=== PATIENT | female | born 1950 | race Caucasian/White ===

== ENCOUNTER → 2018-03-25 10:37 | Outpatient (CLI) | payer OTHER, SELFPAY ==
--- NOTE | 2018-03-25 | DI.MG.S_ITS ---
BILATERAL DIGITAL SCREENING MAMMOGRAM 3D/2D WITH CAD: 03/25/2018 CLINICAL: Routine screening. Comparison is made to exams dated: 11/09/2014 mammogram, 10/16/2011 mammogram, and 08/18/2009 mammogram - [facility]. The tissue of both breasts is heterogeneously dense. This may lower the sensitivity of mammography. Current study was also evaluated with a Computer Aided Detection (CAD) system. No significant masses, calcifications, or other findings are seen in either breast. There has been no significant interval change. IMPRESSION: NEGATIVE There is no mammographic evidence of malignancy. A 1 year screening mammogram is recommended. This exam was interpreted at Station ID: [id number]. NOTE: For mammograms, a report in lay terms will be sent to the patient. Approximately 15% of breast malignancies will not be visualized mammographically. In the management of a palpable breast mass, a negative mammogram must not discourage biopsy of a clinically suspicious lesion. Electronically Signed By: Scooby duran/celestino:03/25/2018 16:28:37 letter sent: Normal Exam ACR BI-RADS Category 1: Negative 3341F
== END ==
PROVIDERS: PCP Nurse Practitioner Family; Visit Provider Nurse Practitioner Family
DX: Z12.31 Encounter for screening mammogram for malignant neoplasm of breast (principal)
CPT/HCPCS: 77063; 77067

== ENCOUNTER → 2021-01-12 10:27 | Outpatient (CLI) | payer MEDICARE, OTHER, SELFPAY ==
[2021-01-12 19:46] LABS: Add Manual Diff / Slide Review NO; Basophils Absolute Auto 100 /uL (0-100); Basophils Percent Auto 0.9 % (0-2); Eosinophils Absolute Auto 100 /uL (0-450); Eosinophils Percent Auto 1.7 % (2-4); Hematocrit 39.8 % (36-46); Hemoglobin 13.6 g/dL (12.0-16.0); Lymphocytes Absolute Auto 2600 /uL (1100-4500); Lymphocytes Percent Auto 38.7 % (25-40); Mean Corpuscular HGB Conc 34.3 % (30-36); Mean Corpuscular Hemoglobin 32.6 PG (26-34); Mean Corpuscular Volume 95.2 fL (80-100); Monocytes Absolute Auto 600 /uL (0-900); Monocytes Percent Auto 8.4 % (3-14); Neutrophils Absolute Auto 3300 /uL (1500-7000); Neutrophils Percent Auto 50.3 % (50-75); Platelet Count 253 X10^3/uL (150-400); Red Blood Cell Count 4.18 X10^6/uL (4.0-5.2); Red Cell Distribution Width 13.7 % (11.6-14.8); White Blood Cell Count 6.6 X10^3/uL (4.5-11.0)
[2021-01-12 19:51] LABS: Cholesterol 255 mg/dL (140-199); HDL Cholesterol 85 mg/dL (40-60); LDL Cholesterol Calculated 144 mg/dL (<100); Triglycerides 132 mg/dL (35-150)
== END ==
PROVIDERS: PCP Physician Assistant Medical; Visit Provider Physician Assistant Medical
DX: I10 Essential (primary) hypertension (principal)
CPT/HCPCS: 80061; 85025

== ENCOUNTER → 2021-01-13 15:25 | Outpatient (CLI) | payer MEDICARE, OTHER, SELFPAY ==
--- NOTE | 2021-01-13 15:30 | DI.MG.S_ITS ---
BILATERAL DIGITAL SCREENING MAMMOGRAM 3D/2D WITH CAD: 01/13/2021 CLINICAL: Routine screening. Comparison is made to exams dated: 03/25/2018 mammogram, 11/09/2014 mammogram, and 10/16/2011 mammogram - [facility]. The tissue of both breasts is heterogeneously dense. This may lower the sensitivity of mammography. Current study was also evaluated with a Computer Aided Detection (CAD) system. No significant masses, calcifications, or other findings are seen in either breast. There has been no significant interval change. IMPRESSION: NEGATIVE There is no mammographic evidence of malignancy. A 1 year screening mammogram is recommended. This exam was interpreted at Station ID: [id number]. NOTE: For mammograms, a report in lay terms will be sent to the patient. Approximately 15% of breast malignancies will not be visualized mammographically. In the management of a palpable breast mass, a negative mammogram must not discourage biopsy of a clinically suspicious lesion. Electronically Signed By: Scooby duran/celestino:01/13/2021 15:55:08 letter sent: Normal Exam ACR BI-RADS Category 1: Negative 3341F
== END ==
PROVIDERS: PCP Physician Assistant Medical; Referring Provider Physician Assistant Medical; Visit Provider Physician Assistant Medical
DX: Z12.31 Encounter for screening mammogram for malignant neoplasm of breast (principal)
CPT/HCPCS: 77063; 77067

== ENCOUNTER → 2022-01-20 10:08 | Outpatient (CLI) | payer MEDICARE, OTHER, SELFPAY ==
[2022-01-20 20:17] LABS: Add Manual Diff / Slide Review NO; Basophils Absolute Auto 100 /uL (0-100); Eosinophils Absolute Auto 100 /uL (0-450); Eosinophils Percent Auto 0.8 % (2-4); Hematocrit 39.3 % (36-46); Hemoglobin 13.5 g/dL (12.0-16.0); Lymphocytes Absolute Auto 3200 /uL (1100-4500); Mean Corpuscular HGB Conc 34.2 % (30-36); Mean Corpuscular Hemoglobin 31.8 PG (26-34); Monocytes Absolute Auto 800 /uL (0-900); Monocytes Percent Auto 7.9 % (3-14); Neutrophils Absolute Auto 6300 /uL (1500-7000); Neutrophils Percent Auto 60.3 % (50-75); Platelet Count 264 X10^3/uL (150-400); Red Blood Cell Count 4.23 X10^6/uL (4.0-5.2); Red Cell Distribution Width 13.7 % (11.6-14.8); White Blood Cell Count 10.5 X10^3/uL (4.5-11.0)
[2022-01-20 20:28] LABS: Alanine Aminotransferase 14 IU/L (<35); Albumin 4.3 g/dL (3.5-5.0); Albumin Globulin Ratio 1.2 (1.0-2.8); Alkaline Phosphatase 93 U/L (38-126); Aspartate Aminotransferase 29 IU/L (14-36); BUN Creatinine Ratio 17.9 (6-22); Bilirubin Total 0.7 mg/dL (0.2-1.3); Blood Urea Nitrogen 15 mg/dL (7-17); Carbon Dioxide 24 mmol/L (22-32); Chloride 104 mmol/L (98-107); Cholesterol 221 mg/dL (140-199); Estimated Glomerular Filt Rate > 60 mL/min (>60); Globulin 3.6 g/dL (1.7-4.1); Glucose 98 mg/dL (80-110); HDL Cholesterol 84 mg/dL (40-60); HEMOLYSIS 23 (0-50); LDL Cholesterol Calculated 121 mg/dL (<100); Sodium 139 mmol/L (137-145); Total Protein 7.9 g/dL (6.3-8.2); Triglycerides 80 mg/dL (35-150)
[2022-01-20 21:28] LABS: Hep C Virus Ab w/Reflex Quant NEGATIVE s/c (NEGATIVE)
== END ==
PROVIDERS: PCP Physician Assistant Medical; Visit Provider Family Medicine
DX: Z00.00 Encounter for general adult medical examination without abnormal findings (principal); K51.40 Inflammatory polyps of colon without complications; I10 Essential (primary) hypertension; E78.00 Pure hypercholesterolemia, unspecified; Z12.11 Encounter for screening for malignant neoplasm of colon; Z13.1 Encounter for screening for diabetes mellitus; Z11.59 Encounter for screening for other viral diseases
CPT/HCPCS: 80053; 80061; 85025; 86803

== ENCOUNTER → 2022-04-04 07:01 | Outpatient (CLI) | payer MEDICARE, SELFPAY ==
[2022-04-04 20:28] LABS: Alanine Aminotransferase 13 IU/L (<35); Albumin Globulin Ratio 1.3 (1.0-2.8); Alkaline Phosphatase 84 U/L (38-126); Aspartate Aminotransferase 28 IU/L (14-36); BUN Creatinine Ratio 13.1 (6-22); Bilirubin Total 0.4 mg/dL (0.2-1.3); Blood Urea Nitrogen 11 mg/dL (7-17); Calcium 9.1 mg/dL (8.4-10.2); Carbon Dioxide 24 mmol/L (22-32); Chloride 103 mmol/L (98-107); Estimated Glomerular Filt Rate > 60 mL/min (>60); Globulin 3.2 g/dL (1.7-4.1); Glucose 100 mg/dL (80-110); HEMOLYSIS < 15 (0-50); Potassium 3.4 mmol/L (3.4-5.1); Sodium 136 mmol/L (137-145); Total Protein 7.2 g/dL (6.3-8.2)
[2022-04-04 21:43] LABS: COVID19 - ORCAS (NP or Nasal) Negative (Negative)
== END ==
PROVIDERS: Family Medicine; PCP Physician Assistant Medical; Visit Provider Physician Assistant
DX: Z01.812 Encounter for preprocedural laboratory examination (principal); Z20.822 Contact with and (suspected) exposure to COVID-19; Z13.9 Encounter for screening, unspecified
CPT/HCPCS: 80053; C9803; U0003

== ENCOUNTER 2022-04-06 10:28 | Day surgery (SDC) | payer MEDICARE, OTHER, SELFPAY ==
--- NOTE | 2022-04-06 | PATH_ITS ---
[facility] Accession Number: [id number] . 01 Material submitted: . cecum - CECAL COLON POLYP . 01 Diagnosis: Cecum, Polyp, Biopsy: Colonic mucosa with no diagnostic abnormality, consistent with polypoid redundancy. Negative for dysplasia and malignancy. Additional levels were examined. JNL 04/11/2022 1305 Local . 01 Electronically signed: . Claudia Jacome MD, Pathologist NPI- [id number] . 01 Gross description: . CECAL COLON POLYP: Received in formalin is 1 fragment(s) of cobb, soft tissue measuring 0.3 x 0.2 x 0.1 cm submitted entirely in 1 cassette(s) /CPE 04/07/2022 0912 Local . 01 Pathologist provided ICD-10: K63.5 . 01 CPT . 276729 Specimen Comment: A courtesy copy of this report has been sent to [phone] Performed at: 01 [facility] [address] [place] [address] [address] [facility], [place], [place] [id number] MD Scooby Watson MD Phone: [phone]
[2022-04-06 10:45] VITALS: BP 152/92; PULSE 75; RESP 16; TEMP 35.8; O2SAT 96
[2022-04-06 10:46] VITALS: BMI 25.0
[2022-04-06] MEDS: LACTATED RINGERS 1,000 ML 100 ML IV (10:56)
--- NOTE | 2022-04-06 11:43 | P.HP_ITS ---
History of Present Illness History of Present Illness Date Patient Seen: 04/06/22 Time Patient Seen: 11:43 Chief complaint: DX COLONOSCOPY Narrative: Lila is a 71-year-old woman who had a colonoscopy in 2016 at [facility] with findings of a single polyp which turned out to be a plastic polyp. She is here colonoscopy Patient History Surgical History (Updated 01/01/18 @ 06:27 by Conversion Provider) History of hip replacement Family & Social History Social History: household members spouse Tobacco & Substance use: Smoking Status Former smoker alcohol intake current Substance Use Type marijuana Meds Home Medications and Allergies Home Medications Medication Instructions Recorded Confirmed Type diltiazem HCl 180 mg 180 mg PO Q DAY #90 caps 01/31/22 04/06/22 Rx capsule,extended release 24 hr lisinopril 20 1 tab PO Q DAY #90 tabs 01/31/22 04/06/22 Rx mg-hydrochlorothiazide 12.5 mg tablet terbinafine HCl 250 mg tablet 250 mg PO DAILY #42 tabs 04/05/22 04/06/22 Rx Allergies Allergy/AdvReac Type Severity Reaction Status Date / Time No Known Drug Allergies Allergy Verified 04/06/22 10:43 Exam Vital Signs (past 8 hours): - 04/06/22 10:45 Temperature 96.5 F L Pulse Rate 75 Respiratory Rate 16 Blood Pressure 152/92 H Pulse Oximetry 96 Oxygen Delivery Method Room Air Oxygen Delivery Method Room Air Const General: comfortable Resp Effort & Inspection: normal respiratory effort Assessment & Plan Assessment and plan (1) Screening for colon cancer: Status: Acute Plan 71-year-old woman here for colonoscopy for cancer screening. We reviewed the risks and benefits and she would like to proceed. Time Spent With Patient Critical Care time: I spent a total of [] minutes of critical care time on this patient's care today; this time is exclusive of procedural time.
[2022-04-06] MEDS: MIDAZOLAM 5 MG/5 ML VIAL 7 MG IV (12:13)
[2022-04-06] MEDS: fentaNYL 250 MCG/5 ML INJ 200 MCG IV (12:13)
--- NOTE | 2022-04-06 12:25 | PM.OP.COLON ---
Operative Date/Time/Diagnoses Date of procedure: 04/06/22 Time of procedure: 12:25 Pre-op diagnosis: History of colon polyps Post-op diagnosis: same Procedure & Clinicians Study performed: Colonoscopy Same procedure as scheduled: Yes Surgeon: Kirk Saunders Procedure Notes Procedure in detail: Surgeon: Kirk Saunders MD Procedure: The patient was brought to the endoscopy suite, placed in left lateral decubitus position. The patient was connected to monitoring devices. A time-out was performed. Sedation was administered. Once the patient was adequately sedated, a digital rectal exam was performed and was normal. The scope was then inserted and advanced to the cecum where the appendiceal orifice was identified and photographed. The scope was then slowly withdrawn over greater than 6 minutes. The mucosa was thoroughly inspected. There was a small polyp in the cecum removed with cold forceps. The polyp was about 4 mm. There was rand-diverticulosis greatest in the right colon and sigmoid colon. The scope was retroflexed in the rectum. No other abnormalities were noted. The scope was straightened and removed. The patient was awakened and brought to recovery. Versed: 7 mg Fentanyl: 200 mcg EBL: 5 mL Findings: Small polyp in the cecum and pandiverticulosis Scope withdrawal time: 7 Sedation minutes: 29 Post-procedure Recommendations: Will call with biopsy results Disposition: PACU
[2022-04-06 12:30] VITALS: BP 152/92; PULSE 75; RESP 16; TEMP 36; O2SAT 95
[2022-04-06 12:35] VITALS: BP 106/65; PULSE 53; RESP 16; O2SAT 98
[2022-04-06 12:40] VITALS: BP 104/67; PULSE 58; RESP 16; O2SAT 98
[2022-04-06 12:48] VITALS: BP 111/43; PULSE 59; RESP 16; O2SAT 98
== END 2022-04-06 12:54 | disposition home or self-care (01) ==
PROVIDERS: PCP Family Medicine; Referring Provider Surgery; Visit Provider Surgery
PROC: 0DJD8ZZ Inspection of Lower Intestinal Tract, Via Natural or Artificial Opening Endoscopic (ICD-10-PCS; CPT 45378; principal; 2022-04-06 11:30)
DX: Z12.11 Encounter for screening for malignant neoplasm of colon (principal); Z86.010 Personal history of colon polyps; K57.30 Diverticulosis of large intestine without perforation or abscess without bleeding; K63.5 Polyp of colon
CPT/HCPCS: 45380; 99152; 99153; J2250; J3010

== ENCOUNTER → 2022-05-03 11:14 | Outpatient (CLI) | payer MEDICARE, OTHER, SELFPAY ==
[2022-05-03 20:01] LABS: Aspartate Aminotransferase 25 IU/L (14-36)
== END ==
PROVIDERS: PCP Family Medicine; Visit Provider Family Medicine
DX: Z51.81 Encounter for therapeutic drug level monitoring (principal)
CPT/HCPCS: 84450

== ENCOUNTER → 2023-05-14 10:30 | Outpatient (CLI) | payer MEDICARE, OTHER, SELFPAY ==
[2023-05-14 20:10] LABS: Add Manual Diff / Slide Review NO; Basophils Absolute Auto 100 /uL (0-100); Basophils Percent Auto 0.7 % (0-2); Eosinophils Absolute Auto 100 /uL (0-450); Eosinophils Percent Auto 1.5 % (2-4); Hematocrit 38.5 % (36-46); Hemoglobin 13.2 g/dL (12.0-16.0); Lymphocytes Absolute Auto 3200 /uL (1100-4500); Lymphocytes Percent Auto 43.8 % (25-40); Mean Corpuscular HGB Conc 34.3 % (30-36); Mean Corpuscular Hemoglobin 32.2 PG (26-34); Mean Corpuscular Volume 93.7 fL (80-100); Monocytes Absolute Auto 800 /uL (0-900); Monocytes Percent Auto 11.5 % (3-14); Neutrophils Absolute Auto 3200 /uL (1500-7000); Neutrophils Percent Auto 42.5 % (50-75); Platelet Count 248 X10^3/uL (150-400); Red Blood Cell Count 4.11 X10^6/uL (4.0-5.2); Red Cell Distribution Width 14.1 % (11.6-14.8); White Blood Cell Count 7.4 X10^3/uL (4.5-11.0)
[2023-05-14 20:38] LABS: Blood Urea Nitrogen 20 mg/dL (7-17); Calcium 9.1 mg/dL (8.4-10.2); Carbon Dioxide 26 mmol/L (22-32); Chloride 106 mmol/L (98-107); Cholesterol 256 mg/dL (140-199); Estimated Glomerular Filt Rate > 60 mL/min (>60); Glucose 98 mg/dL (80-110); HDL Cholesterol 87 mg/dL (40-60); HEMOLYSIS < 15 (0-50); LDL Cholesterol Calculated 145 mg/dL (<100); Potassium 3.8 mmol/L (3.4-5.1); Sodium 141 mmol/L (137-145); Triglycerides 121 mg/dL (35-150)
== END ==
PROVIDERS: PCP Family Medicine; Visit Provider Family Medicine
DX: B35.1 Tinea unguium (principal); E78.2 Mixed hyperlipidemia; I10 Essential (primary) hypertension
CPT/HCPCS: 80048; 80061; 85025

== ENCOUNTER → 2023-05-17 12:56 | Outpatient (CLI) | payer MEDICARE, OTHER, SELFPAY ==
--- NOTE | 2023-05-17 12:58 | DI.MG.S_ITS ---
BILATERAL DIGITAL SCREENING MAMMOGRAM 3D/2D WITH CAD: 05/17/2023 CLINICAL: Routine screening. Comparison is made to exams dated: 01/13/2021 mammogram, 03/25/2018 mammogram, and 11/09/2014 mammogram - [facility]. Both breasts are heterogeneously dense, which may obscure small masses (category c / 51-75% glandular tissue). Current study was also evaluated with a Computer Aided Detection (CAD) system. No significant masses, calcifications, or other findings are seen in either breast. There has been no significant interval change. IMPRESSION: NEGATIVE There is no mammographic evidence of malignancy. A 1 year screening mammogram is recommended. Based on the Tyrer Cuzick model (a risk assessment model) the patient's lifetime risk is 5.7% and her 10 year risk is 4.3%. According to the ACR, ACS, and NCCN guidelines, an annual breast MRI exam along with mammogram is recommended if the patient's lifetime risk is 20% or greater. This exam was interpreted at Station ID: [id number]. NOTE: For mammograms, a report in lay terms will be sent to the patient. Approximately 15% of breast malignancies will not be visualized mammographically. In the management of a palpable breast mass, a negative mammogram must not discourage biopsy of a clinically suspicious lesion. Electronically Signed By: Vane lundberg/celestino:05/17/2023 21:36:25 letter sent: Normal Exam ACR BI-RADS Category 1: Negative 3341F
== END ==
PROVIDERS: PCP Family Medicine; Referring Provider Family Medicine; Visit Provider Family Medicine
DX: Z12.31 Encounter for screening mammogram for malignant neoplasm of breast (principal)
CPT/HCPCS: 77063; 77067

== ENCOUNTER → 2023-12-13 09:51 | Outpatient (CLI) | payer MEDICARE, OTHER, SELFPAY ==
[2023-12-13 18:40] LABS: Add Manual Diff / Slide Review NO; Basophils Absolute Auto 100 /uL (0-100); Basophils Percent Auto 1.2 % (0-2); Eosinophils Absolute Auto 200 /uL (0-450); Hemoglobin 13.6 g/dL (12.0-16.0); Lymphocytes Absolute Auto 3700 /uL (1100-4500); Lymphocytes Percent Auto 47.9 % (25-40); Mean Corpuscular Hemoglobin 32.6 PG (26-34); Mean Corpuscular Volume 95.9 fL (80-100); Monocytes Absolute Auto 800 /uL (0-900); Monocytes Percent Auto 9.8 % (3-14); Neutrophils Absolute Auto 3000 /uL (1500-7000); Neutrophils Percent Auto 39.1 % (50-75); Platelet Count 222 X10^3/uL (150-400); Red Blood Cell Count 4.17 X10^6/uL (4.0-5.2); Red Cell Distribution Width 13.7 % (11.6-14.8); White Blood Cell Count 7.8 X10^3/uL (4.5-11.0)
[2023-12-13 19:27] LABS: Alanine Aminotransferase 14 IU/L (<35); Albumin 4.6 g/dL (3.5-5.0); Albumin Globulin Ratio 1.5 (1.0-2.8); Alkaline Phosphatase 87 U/L (38-126); Aspartate Aminotransferase 29 IU/L (14-36); BUN Creatinine Ratio 16.5 (6-22); Bilirubin Total 0.8 mg/dL (0.2-1.3); Blood Urea Nitrogen 14 mg/dL (7-17); Calcium 9.9 mg/dL (8.4-10.2); Carbon Dioxide 26 mmol/L (22-32); Chloride 105 mmol/L (98-107); Cholesterol 255 mg/dL (140-199); Estimated Glomerular Filt Rate > 60 mL/min (>60); Globulin 3.1 g/dL (1.7-4.1); Glucose 96 mg/dL (80-110); HEMOLYSIS < 15 (0-50); Potassium 4.6 mmol/L (3.4-5.1); Sodium 139 mmol/L (137-145); Total Protein 7.7 g/dL (6.3-8.2); Triglycerides 65 mg/dL (35-150)
[2023-12-13 19:44] LABS: HDL Cholesterol 113 mg/dL (40-60); LDL Cholesterol Calculated 129 mg/dL (<100)
[2023-12-13 19:56] LABS: TSH w/ Reflex to FT4 < 0.02 uIU/mL (0.47-4.68)
[2023-12-13 23:49] LABS: Free T4, Direct Thyroxine 1.41 ng/dL (0.78-2.19)
[2023-12-17 21:55] LABS: Fecal Immunochemical Test Negative (Negative)
== END ==
PROVIDERS: PCP Family Medicine; Visit Provider Physician Assistant Medical
DX: E78.2 Mixed hyperlipidemia (principal); K57.92 Diverticulitis of intestine, part unspecified, without perforation or abscess without bleeding; I10 Essential (primary) hypertension; R19.5 Other fecal abnormalities
CPT/HCPCS: 80053; 80061; 82274; 84439; 84443; 85025

== ENCOUNTER → 2024-01-18 07:46 | Outpatient (CLI) | payer MEDICARE, OTHER, SELFPAY ==
--- NOTE | 2024-01-18 07:48 | DI.US.S_ITS ---
PROCEDURE: US THYROID INDICATIONS: hyperthyroid TECHNIQUE: Real-time scanning was performed of the thyroid gland, with image documentation. COMPARISON: None. FINDINGS: Thyroid: Right lobe measures 5.0 x 2.5 x 1.9 cm. Left lobe measures 4.5 x 1.7 x 1.3 cm. Isthmus is 0.2 cm thick. Echotexture is homogeneous. Nodule number: 1 Location: Mid/inferior right thyroid lobe Size: 3.3 x 2.2 x 2.0 cm. Composition: Solid Echogenicity: Hypoechoic Shape: wider than tall. Margins: Smooth Echogenic foci: Macrocalcifications and small punctate calcifications Total points: 6 ACR TI-RADS category: TI-RADS 4 (moderately suspicious) IMPRESSION: A 3.3 cm mid/inferior right thyroid lobe TI-RADS 4 (moderately suspicious) nodule meets consensus criteria for fine-needle aspiration if not already accomplished. ACR TI-RADS definitions and recommendations: TI-RADS 1 (benign): 0 points. FNA not needed. TI-RADS 2 (not suspicious): 2 points. FNA not needed. TI-RADS 3 (mildly suspicious): 3 points. * FNA if 2.5 cm or larger, follow up if 1.5 cm or larger (at 1, 3, and 5 years). TI-RADS 4 (moderately suspicious): 4-6 points. * FNA if 1.5 cm or larger, follow up if 1 cm or larger (at 1, 2, 3, and 5 years). TI-RADS 5 (highly suspicious): 7 points or more. * FNA if 1 cm or larger, follow up if 0.5 cm or larger (every year for 5 years). Dictated by: Ryne Alexander M.D. on 01/18/2024 at 10:49 Approved by: Ryne Alexander M.D. on 01/18/2024 at 10:53
[2024-01-18 15:17] LABS: Free T3, Triiodothyronine Free 5.47 pg/mL (2.77-5.27)
[2024-01-18 15:31] LABS: TSH w/ Reflex to FT4 0.09 uIU/mL (0.47-4.68)
[2024-01-18 16:05] LABS: Free T4, Direct Thyroxine 1.14 ng/dL (0.78-2.19)
== END ==
LOC: US 07:48
PROVIDERS: PCP Physician Assistant Medical; Referring Provider Physician Assistant Medical; Visit Provider Physician Assistant Medical
DX: E05.90 Thyrotoxicosis, unspecified without thyrotoxic crisis or storm (principal); E04.1 Nontoxic single thyroid nodule; R94.6 Abnormal results of thyroid function studies
CPT/HCPCS: 36415; 76536; 84439; 84443; 84481

== ENCOUNTER → 2024-01-30 07:55 | Outpatient (CLI) | payer MEDICARE, OTHER, SELFPAY ==
--- NOTE | 2024-01-30 | PATH_ITS ---
Note [facility] Accession Number: [id number] TESTS RESULT FLAG UNITS REF RANGE LAB Clinician Provided Cytology Information No. of containers..02 Previously Prepared Cytology Slide 35 Unknown Storage/container code(s) Source: RIGHT THYROID NODULE DIAGNOSIS: RIGHT THYROID NODULE ATYPIA OF UNDETERMINED SIGNIFICANCE. [place] CATEGORY III. ATYPIA OF UNDETERMINED SIGNIFIANCE - NUCLEAR ATYPIA. MOLECULAR STUDIES REQUESTED (INTEGRATED ONCOLOGY); RESULTS WILL BE REPORTED SEPARATELY. Pathologist ICD10: R89.6 Signed out by: Veronica Peña MD, Pathologist NPI- [id number] Performed by: Trace Mtz, Litigation Assistant ([facility]) Gross description: 30 CC, RED, CLOUDY RECIEVED: IN CYTOLYT WITH 6 ALCOHOL FIXED AND 6 QUICK STAINED SLIDES ALSO 1 RNA VIAL WILL ON 08-21-2025.VO /VDU 01/31/2024 0528 [facility] FLAG LEGEND: L-Low Normal,H-High Normal,LL-Alert Low,HH-Alert High <-Panic Low,>-Panic High,A-Abnormal,AA-Critical Abnormal Performed at: 01 =[address] [facility], [place] [address] Scooby Watson MD, Performed at: [address], [place], [place] [id number] MD Scooby Watson MD Phone: [phone]
--- NOTE | 2024-01-30 07:57 | DI.US.S_ITS ---
PROCEDURE: US FINE NEEDLE ASPIRATION INDICATIONS: Nontoxic single thyroid nodule TECHNIQUE: The indications, alternatives, benefits, risks, and complications of the procedure were explained to the patient. Written informed consent was obtained and placed in the chart. The area of interest was examined sonographically and a site was chosen for ultrasound guided percutaneous sampling. The skin was prepared and draped in the usual fashion, and anesthetized with 1% lidocaine infiltrated from the skin down to the lesion. Multiple passes were then performed, with contents emptied into an appropriate pathology specimen container. A bandage was applied to the area of access at completion of the study. COMPARISON: [facility], THYROID, 01/18/2024, 7:59. FINDINGS: Location(s) of lesion(s) sampled: Right mid/inferior thyroid nodule measuring 3.2 cm. (Previously labeled #1). [place]: 25 gauge hypodermic needles x4. 22 gauge hypodermic needles x2. Number of passes: 6 total Medications: 1% lidocaine for local anaesthesia. Complications: None. IMPRESSION: Successful ultrasound-guided right mid/inferior thyroid nodule fine needle aspiration, with cytology results pending. Dictated by: nAthony Clarke M.D. on 01/30/2024 at 10:35 Approved by: Anthony Clarke M.D. on 01/30/2024 at 10:37
[2024-01-30 09:39] LABS: Free T3, Triiodothyronine Free 3.54 pg/mL (2.77-5.27)
[2024-01-30 09:53] LABS: TSH w/ Reflex to FT4 0.07 uIU/mL (0.47-4.68)
[2024-01-30 10:23] LABS: Free T4, Direct Thyroxine 1.02 ng/dL (0.78-2.19)
[2024-01-31 17:09] LABS: Anti Thyroglobulin Antibody <1.0 IU/mL (0.0-0.9); Thyroid Peroxidase Antibodies 25 IU/mL (0-34)
== END ==
LOC: US 07:56
PROVIDERS: PCP Physician Assistant Medical; Referring Provider Physician Assistant Medical; Visit Provider Physician Assistant Medical
DX: E04.1 Nontoxic single thyroid nodule; E05.90 Thyrotoxicosis, unspecified without thyrotoxic crisis or storm
CPT/HCPCS: 10005; 36415; 84439; 84443; 84481; 86376; 86800

== ENCOUNTER → 2024-02-19 11:16 | Outpatient (CLI) | payer MEDICARE, OTHER, SELFPAY ==
[2024-02-19 21:30] LABS: TSH w/ Reflex to FT4 0.03 uIU/mL (0.47-4.68)
[2024-02-19 21:57] LABS: Free T4, Direct Thyroxine 1.08 ng/dL (0.78-2.19)
== END ==
PROVIDERS: PCP Physician Assistant Medical; Visit Provider Physician Assistant Medical
DX: E04.1 Nontoxic single thyroid nodule (principal)
CPT/HCPCS: 84439; 84443

== ENCOUNTER → 2024-12-16 13:26 | Outpatient (CLI) | payer MEDICARE, OTHER, SELFPAY ==
[2024-12-16 18:53] LABS: Add Manual Diff / Slide Review NO; Basophils Absolute Auto 100 /uL (0-100); Basophils Percent Auto 0.8 % (0-2); Eosinophils Absolute Auto 100 /uL (0-450); Eosinophils Percent Auto 1.3 % (2-4); Hematocrit 41.3 % (36-46); Hemoglobin 14.1 g/dL (12.0-16.0); Lymphocytes Absolute Auto 3300 /uL (1100-4500); Lymphocytes Percent Auto 39.9 % (25-40); Mean Corpuscular HGB Conc 34.2 % (30-36); Mean Corpuscular Hemoglobin 32.8 PG (26-34); Monocytes Absolute Auto 700 /uL (0-900); Monocytes Percent Auto 8.3 % (3-14); Neutrophils Absolute Auto 4100 /uL (1500-7000); Neutrophils Percent Auto 49.7 % (50-75); Platelet Count 224 X10^3/uL (150-400); Red Cell Distribution Width 13.6 % (11.6-14.8); White Blood Cell Count 8.2 X10^3/uL (4.5-11.0)
[2024-12-16 19:04] LABS: Erythrocyte Sedimentation Rate 29 MM/HR (0-20)
[2024-12-16 19:14] LABS: Alanine Aminotransferase 20 IU/L (<35); Albumin 4.9 g/dL (3.5-5.0); Albumin Globulin Ratio 1.4 (1.0-2.8); Alkaline Phosphatase 119 U/L (38-126); Aspartate Aminotransferase 37 IU/L (14-36); BUN Creatinine Ratio 19.5 (6-22); Bilirubin Total 0.6 mg/dL (0.2-1.3); Blood Urea Nitrogen 17 mg/dL (7-17); C-Reactive Protein Quant < 0.5 mg/dL (<1.0); Calcium 9.9 mg/dL (8.4-10.2); Carbon Dioxide 21 mmol/L (22-32); Chloride 102 mmol/L (98-107); Estimated Glomerular Filt Rate > 60 mL/min (>60); Globulin 3.6 g/dL (1.7-4.1); Glucose 88 mg/dL (80-110); HEMOLYSIS < 15 (0-50); Potassium 3.6 mmol/L (3.4-5.1); Sodium 137 mmol/L (137-145); Total Protein 8.5 g/dL (6.3-8.2)
[2024-12-16 19:20] LABS: Free T3, Triiodothyronine Free 4.15 pg/mL (2.77-5.27); Free T4, Direct Thyroxine 1.49 ng/dL (0.78-2.19)
== END ==
PROVIDERS: PCP Physician Assistant Medical; Visit Provider Physician Assistant Medical
DX: E05.90 Thyrotoxicosis, unspecified without thyrotoxic crisis or storm (principal); E04.1 Nontoxic single thyroid nodule; I10 Essential (primary) hypertension
CPT/HCPCS: 80053; 84439; 84481; 85025; 85651; 86140

== ENCOUNTER → 2025-02-09 09:24 | Outpatient (CLI) | payer MEDICARE, OTHER, SELFPAY ==
[2025-02-09 19:15] LABS: Erythrocyte Sedimentation Rate 34 MM/HR (0-20)
[2025-02-09 19:22] LABS: C-Reactive Protein Quant < 0.5 mg/dL (<1.0); Cholesterol 173 mg/dL (140-199); HDL Cholesterol 77 mg/dL (40-60); LDL Cholesterol Calculated 78 mg/dL (<100); Triglycerides 89 mg/dL (35-150)
[2025-02-09 19:48] LABS: TSH w/ Reflex to FT4 0.62 uIU/mL (0.47-4.68)
== END ==
PROVIDERS: PCP Physician Assistant Medical; Visit Provider Physician Assistant Medical
DX: E78.2 Mixed hyperlipidemia (principal); E05.90 Thyrotoxicosis, unspecified without thyrotoxic crisis or storm; E04.1 Nontoxic single thyroid nodule; I10 Essential (primary) hypertension; Z86.0100 Personal history of colon polyps, unspecified
CPT/HCPCS: 80061; 84443; 85651; 86140

== ENCOUNTER → 2025-03-09 11:01 | Outpatient (CLI) | payer MEDICARE, OTHER, SELFPAY ==
--- NOTE | 2025-03-09 11:03 | DI.US.S_ITS ---
PROCEDURE: US THYROID INDICATIONS: FOLLOW-UP NODULE TECHNIQUE: Real-time scanning was performed of the thyroid gland, with image documentation. COMPARISON: [facility], US, US THYROID, 01/18/2024, 7:59. FINDINGS: Thyroid: Right lobe measures 5.7 x 2.4 x 2.4 cm. Left lobe measures 4.6 x 1.4 x 1.4 cm. Isthmus is 0.2 cm thick. Echotexture is homogeneous. Nodule number: 1 Location: Right thyroid lobe inferior-middle Size: 3.4 x 2.2 x 2.0 cm. Previously measured 3.3 x 2.2 x 2.0 cm. Composition: Solid Echogenicity: Hypoechoic Shape: wider than tall. Margins: Smooth Echogenic foci: Macrocalcification Total points: 5 ACR TI-RADS category: 4 Nodule number: 2 Location: Right thyroid lobe superiorly Size: 1.4 x 1.2 x 0.6 cm. Composition: Solid Echogenicity: Hypoechoic Shape: wider than tall. Margins: Smooth Echogenic foci: None Total points: 4 ACR TI-RADS category: 4 IMPRESSION: Nodule 1 is unchanged was previously biopsied by fine-needle aspiration 01/30/2024. Continued follow-up suggested. Nodule 2. Is new and should be followed up in 1 year by size criteria. ACR TI-RADS definitions and recommendations: TI-RADS 1 (benign): 0 points. FNA not needed. TI-RADS 2 (not suspicious): 2 points. FNA not needed. TI-RADS 3: 3 points. * FNA if 2.5 cm or larger, follow up if 1.5 cm or larger (at 1, 3, and 5 years). TI-RADS 4: 4-6 points. * FNA if 1.5 cm or larger, follow up if 1 cm or larger (at 1, 2, 3, and 5 years). TI-RADS 5: 7 points or more. * FNA if 1 cm or larger, follow up if 0.5 cm or larger (every year for 5 years). Dictated by: Valentino Lau M.D. on 03/09/2025 at 12:28 Approved by: Valentino Lau M.D. on 03/09/2025 at 12:45
[2025-03-09 12:20] LABS: Add Manual Diff / Slide Review NO; Hematocrit 38.2 % (36-46); Hemoglobin 13.3 g/dL (12.0-16.0); Lymphocytes Absolute Auto 2900 /uL (1100-4500); Mean Corpuscular HGB Conc 34.8 % (30-36); Mean Corpuscular Hemoglobin 31.9 PG (26-34); Mean Corpuscular Volume 91.7 fL (80-100); Platelet Count 262 X10^3/uL (150-400)
[2025-03-09 12:42] LABS: Alanine Aminotransferase 18 IU/L (<35); Albumin 4.7 g/dL (3.5-5.0); Albumin Globulin Ratio 1.3 (1.0-2.8); Alkaline Phosphatase 98 U/L (38-126); Blood Urea Nitrogen 20 mg/dL (7-17); Calcium 10.1 mg/dL (8.4-10.2); Carbon Dioxide 28 mmol/L (22-32); Chloride 103 mmol/L (98-107); Estimated Glomerular Filt Rate > 60 mL/min (>60); Globulin 3.7 g/dL (1.7-4.1); Glucose 102 mg/dL (70-99); HEMOLYSIS < 15 (0-50); Potassium 4.1 mmol/L (3.4-5.1); Sodium 140 mmol/L (137-145); Total Protein 8.4 g/dL (6.3-8.2)
[2025-03-09 13:11] LABS: TSH w/ Reflex to FT4 < 0.02 uIU/mL (0.47-4.68)
[2025-03-09 13:35] LABS: Free T4, Direct Thyroxine 1.26 ng/dL (0.78-2.19)
== END ==
PROVIDERS: PCP Physician Assistant Medical; Referring Provider Physician Assistant Medical; Visit Provider Physician Assistant Medical
DX: E04.1 Nontoxic single thyroid nodule (principal); I10 Essential (primary) hypertension; R70.0 Elevated erythrocyte sedimentation rate
CPT/HCPCS: 36415; 76536; 80053; 84439; 84443; 85025; 85651; 86140

== ENCOUNTER → 2025-04-09 13:55 | Outpatient (CLI) | payer MEDICARE, OTHER, SELFPAY ==
[2025-04-09 19:24] LABS: Add Manual Diff / Slide Review NO; Hematocrit 34.1 % (36-46); Hemoglobin 11.9 g/dL (12.0-16.0); Lymphocytes Absolute Auto 2300 /uL (1100-4500); Mean Corpuscular HGB Conc 34.9 % (30-36); Mean Corpuscular Hemoglobin 31.7 PG (26-34); Mean Corpuscular Volume 90.8 fL (80-100); Platelet Count 250 X10^3/uL (150-400)
[2025-04-09 19:41] LABS: Alanine Aminotransferase 18 IU/L (<35); Albumin 3.9 g/dL (3.5-5.0); Albumin Globulin Ratio 1.3 (1.0-2.8); Alkaline Phosphatase 84 U/L (38-126); Blood Urea Nitrogen 15 mg/dL (7-17); Calcium 9.3 mg/dL (8.4-10.2); Carbon Dioxide 24 mmol/L (22-32); Chloride 104 mmol/L (98-107); Estimated Glomerular Filt Rate > 60 mL/min (>60); Globulin 3.0 g/dL (1.7-4.1); Glucose 158 mg/dL (70-99); HEMOLYSIS < 15 (0-50); Potassium 3.5 mmol/L (3.4-5.1); Sodium 138 mmol/L (137-145); Total Protein 6.9 g/dL (6.3-8.2)
[2025-04-09 19:47] LABS: Free T3, Triiodothyronine Free 4.03 pg/mL (2.77-5.27)
[2025-04-09 20:01] LABS: TSH w/ Reflex to FT4 1.14 uIU/mL (0.47-4.68)
[2025-04-11 19:35] LABS: Anti Thyroglobulin Antibody <1.0 IU/mL (0.0-0.9)
== END ==
PROVIDERS: PCP Physician Assistant Medical; Visit Provider Physician Assistant Medical
DX: R70.0 Elevated erythrocyte sedimentation rate (principal); E05.90 Thyrotoxicosis, unspecified without thyrotoxic crisis or storm; E04.1 Nontoxic single thyroid nodule; R79.89 Other specified abnormal findings of blood chemistry
CPT/HCPCS: 80053; 84443; 84481; 85025; 85651; 86376; 86800

== ENCOUNTER → 2025-05-14 13:17 | Outpatient (CLI) | payer MEDICARE, OTHER, SELFPAY | PROVIDERS: PCP Physician Assistant Medical; Visit Provider Physician Assistant Medical | DX: R70.0 Elevated erythrocyte sedimentation rate (principal); R76.8 Other specified abnormal immunological findings in serum | CPT/HCPCS: 86235 ==